=== PATIENT | male | born 1995 | race Two or more races ===

== ENCOUNTER 2023-09-14 01:01 | Inpatient (IN) | payer BC, OTHER ==
[2023-09-14] VITALS (14 sets, daily range): PULSE 115–132; RESP 14–59; O2SAT 93–100
[~2023-09-14] VITALS: Ht 177.8 cm; Wt 81.9 kg
[2023-09-14] MEDS ORDERED: MethylPREDNISolone SOD SUCC 125 MG/2 ML VIAL ONE (01:13)
[2023-09-14 01:30] LABS: HEMOGLOBIN 14.8 g/dL (13.5-17.5); MEAN CORPUSCULAR HGB CONC 32.5 G/dL (31.0-37.0)
[2023-09-14] MEDS ORDERED: EPINEPHrine 2 MG in DEXTROSE 5%-WATER 248 ML IV PRN (01:30)
[2023-09-14 01:38] LABS: ANION GAP 20 mmol/L (8-16); CALCIUM, TOTAL 9.9 mg/dL (8.8-10.5); CARBON DIOXIDE 19 mmol/L (22-29); CHLORIDE 101 mmol/L (98-107); GLOMERULAR FILTR. RATE CALC > 60 mL/min (>60); GLUCOSE,RANDOM 237 mg/dL (70-110); POTASSIUM 3.6 mmol/L (3.5-5.1); SODIUM SERUM 140 mmol/L (136-145); UREA NITROGEN, BLOOD 15 mg/dL (7-18)
[2023-09-14 01:42] LABS: BASOPHILS % (AUTO) 0.8 % (0.0-2.0); EOSINOPHILS % (AUTO) 5.1 % (1.0-6.0); HEMATOCRIT 45.6 % (41-53); LYMPHOCYTES # (AUTO) 8.5 K/uL (1.0-4.8); LYMPHOCYTES % (AUTO) 50.8 % (22.0-44.0); MEAN CORPUSCULAR HEMOGLOBIN 29.4 pg (26.0-34.0); MEAN CORPUSCULAR VOLUME 91 fL (80-100); MONOCYTES # (AUTO) 1.5 K/uL (0.1-1.0); MONOCYTES % (AUTO) 8.9 % (2.0-9.0); NEUTROPHILS # (AUTO) 5.8 K/uL (1.8-7.7); NEUTROPHILS % (AUTO) 34.4 % (40.0-70.0); PLATELET COUNT (AUTO) 431 K/uL (150-450); RED BLOOD CELL COUNT(AUTO) 5.03 MIL/uL (4.50-5.90); RED CELL DISTRIBUTION WIDTH 13.2 % (11.5-14.5); WHITE BLOOD COUNT (AUTO) 16.8 K/uL (4.5-11.0)
[2023-09-14] MEDS ORDERED: AMIODARONE HCL 360 MG in DEXTROSE 5%-WATER 242.8 ML IV ONE (01:45)
[2023-09-14] MEDS ORDERED: AMIODARONE HCL 50 MG/ML 3 ML VIAL IVP ONE (01:45)
[2023-09-14] MEDS ORDERED: ADENOSINE 3 MG/ML 2 ML VIAL IVP ONE ×2 (01:45)
[2023-09-14 01:46] LABS: PROTHROMBIN TIME 10.7 SEC (9.4-11.6); TROPONIN I-HIGH SENSITIVITY 5 ng/L (<76)
[2023-09-14 01:48] LABS: ALANINE AMINOTRANSFERASE 24 U/L (12-78); ALBUMIN 4.4 g/dL (3.4-5.0); ALKALINE PHOSPHATASE 123 U/L (46-116); ASPARTATE AMINOTRANSFERASE 19 U/L (15-37); BILIRUBIN,TOTAL 0.5 mg/dL (0.1-1.0); CREATINE KINASE, TOTAL ONLY 171 U/L (39-308); TOTAL PROTEIN, SERUM 8.3 g/dL (6.4-8.2)
[2023-09-14 01:50] LABS: APPEARANCE,URINE CLEAR (CLEAR); BILIRUBIN,URINE NEGATIVE (NEGATIVE); COLOR,URINE LIGHT YELLOW (YELLOW); GLUCOSE, URINE (UA) NEGATIVE (NEGATIVE); KETONES,URINE NEGATIVE (NEGATIVE); LEUKOCYTE ESTERASE ,URINE NEGATIVE (NEGATIVE); NITRATE,URINE NEGATIVE (NEGATIVE); OCCULT BLOOD,URINE TRACE (NEGATIVE); PH,URINE 6.5 (5.0-8.0); PROTEIN,URINE 30-70 mg/dL (NEGATIVE); SPECIFIC GRAVITIY, URINE 1.018 (1.003-1.030); UROBILINOGEN,URINE <=1.0 mg/dL (<=1.0)
[2023-09-14 01:53] LABS: B-TYPE NATRIURETIC PEPTIDE 9 pg/mL (0-100)
[2023-09-14] MEDS: PROPOFOL 1000 MG/ISO-OSM 100 ML IV PRN (01:57)
[2023-09-14 01:59] LABS: WBC,URINE 0-2 /HPF (0-5)
[2023-09-14 02:00] LABS: BACTERIA,URINE None Seen /HPF (None Seen); RBC,URINE 0-2 /HPF (0-2); SQUAMOUS EPITHELIAL CELL,UR None Seen /LPF (None Seen)
[2023-09-14] MEDS ORDERED: MAGNESIUM SULFATE 4 GM/WATER 100 ML IV ONE (02:00)
[2023-09-14 02:21] LABS: GLUCOMETER DEV NAME(LOC) ER.6; GLUCOSE,POINT OF CARE 256 MG/DL (70-110)
[2023-09-14 02:21] LABS: GLUCOMETER DEV NAME(LOC) ER.6; GLUCOSE,POINT OF CARE 271 MG/DL (70-110)
[2023-09-14] MEDS ORDERED: DEXAMETHASONE SOD PHOS 4 MG/ML 5 ML VIAL IVP ONE (02:45)
[2023-09-14] MEDS ORDERED: AMPICILLIN SODIUM/SULBACTAM NA 3 GM in SODIUM CHLORIDE 0.9% 100 ML IV ONE ×3 (03:00→09:30)
[2023-09-14] MEDS ORDERED: ROCURONIUM BROMIDE 10 MG/ML 5 ML VIAL IVP ONE ×2 (03:00→07:00)
[2023-09-14 03:24] LABS: ABG CARBOXYHEMOGLOBIN 0.3 % (0.0-3.0); SOURCE, BLOOD GAS ARTERIAL; TEMPERATURE, FAHRENHEIT, BG 96.6 FAHREN (96.0-98.6)
[2023-09-14 03:28] LABS: ABG METHEMOGLOBIN 0.5 % (0.0-1.5); ABG OXYGEN CONTENT 20.3 mL/dL (15.0-23.0); ABG OXYGEN SATURATION 96.7 % (95.0-98.0); ABG OXYHEMOGLOBIN 95.9 % (94.0-100.0); ABG TOTAL HEMOGLOBIN 14.9 G/dL (12.0-18.0); PO2, ARTERIAL BG 134.2 mmHg (80.0-100.0)
[2023-09-14 03:30] LABS: ALLEN TEST, BLOOD GAS Positive; O2 DEVICE,BLOOD GAS VENTILATOR (ROOM AIR); SITE, BLOOD GAS RT RADIAL; VENT MODE, BG Press. Control Vent (ROOM AIR); VT, ABG 76 ml
[2023-09-14 03:31] LABS: PH,URINE DRUG SCREEN 6.5 (5.0-8.0)
[2023-09-14 03:31] LABS: INSIPIRATORY PRESSURE, BG 28 cm H2O; PEEP,BG 10 cm H2O; SPONTANEOUS VT, BG 76 ml
[2023-09-14 03:33] LABS: ALCOHOL, URINE DRUG SCREEN NEGATIVE (NEGATIVE); AMPHET/METH SCREEN,URINE NEGATIVE (NEGATIVE); BARBITURATE SCREEN, URINE NEGATIVE (NEGATIVE); BENZODIAZEPINES SCREEN,URINE NEGATIVE (NEGATIVE); CANNABINOID SCREEN,URINE POSITIVE (NEGATIVE); COCAINE SCREEN,URINE NEGATIVE (NEGATIVE); METHADONE SCREEN, URINE NEGATIVE (NEGATIVE); OPIATE SCREEN,URINE NEGATIVE (NEGATIVE); PHENCYCLIDINE SCREEN,URINE NEGATIVE (NEGATIVE)
[2023-09-14] MEDS ORDERED: SODIUM BICARBONATE [ADULT] 8.4% 50 MEQ/50 ML SYRINGE IVP ONE ×2 (03:37→03:45)
[2023-09-14] MEDS ORDERED: ACETAMINOPHEN 325 MG TABLET PO PRN ×2 (03:45→09:15)
[2023-09-14] MEDS ORDERED: 0.9% SODIUM CHLORIDE 10 ML SYRINGE IVP PRN (03:45)
[2023-09-14] MEDS ORDERED: FentaNYL CIT 1000MCG/0.9% NACL 100 ML IV PRN (04:45)
[2023-09-14] MEDS ORDERED: RINGERS SOLUTION,LACTATED 1,000 ML IV ONE (06:30)
[2023-09-14 07:12] LABS: ABG BASE EXCESS 1.5 mmol/L (-2.0-3.0); ABG CARBOXYHEMOGLOBIN 0.1 % (0.0-3.0); ABG HCO3 23.2 mmol/L (22.0-26.0); ABG OXYGEN CONTENT 21.1 mL/dL (15.0-23.0); ABG OXYGEN SATURATION 99.7 % (95.0-98.0); ABG OXYHEMOGLOBIN 98.6 % (94.0-100.0); ABG TOTAL HEMOGLOBIN 14.8 G/dL (12.0-18.0); PO2, ARTERIAL BG 243.8 mmHg (80.0-100.0); SOURCE, BLOOD GAS ARTERIAL; TEMPERATURE, FAHRENHEIT, BG 95.6 FAHREN (96.0-98.6)
[2023-09-14 07:14] LABS: COVID AG,FIA SOURCE NASAL SWAB
[2023-09-14 07:15] LABS: ABG PCO2 89 mmHg (35-45); ABG PH 7.145 (7.350-7.450); ALLEN TEST, BLOOD GAS POS; O2 DEVICE,BLOOD GAS VENTILATOR (ROOM AIR); SITE, BLOOD GAS LFT BRACHIAL; VENT MODE, BG Press. Control Vent (ROOM AIR)
[2023-09-14 07:16] LABS: INSIPIRATORY PRESSURE, BG 32 cm H2O; PEEP,BG 10 cm H2O; SPONTANEOUS VT, BG 253 ml
[2023-09-14 07:38] LABS: INFLUENZA TYPE A NEGATIVE FOR TYPE A (NEGATIVE); INFLUENZA TYPE B NEGATIVE FOR TYPE B (NEGATIVE); SARS-COV2 (COVID) ANTIGEN,FIA Negative (Negative)
[2023-09-14] MEDS ORDERED: AMIODARONE HCL 540 MG in DEXTROSE 5%-WATER 239.2 ML IV ONE (07:45)
[2023-09-14] MEDS ORDERED: INSULIN LISPRO 100 UNITS/ML SQ PRN (09:15)
[2023-09-14] MEDS ORDERED: ONDANSETRON HCL 4 MG/2 ML VIAL IVP PRN (09:15)
[2023-09-14] MEDS ORDERED: DEXTROSE 50%-WATER 25 GM/50 ML SYRINGE IVP PRN (09:15)
[2023-09-14] MEDS ORDERED: BISACODYL 10 MG RECTAL RECTAL SUPPOSITORY PR PRN (09:15)
[2023-09-14 09:51] LABS: THYROID STIMULATING HORMONE 4.82 uIU/mL (0.36-3.74)
[2023-09-14 11:18] LABS: ABG BASE EXCESS -3.3 mmol/L (-2.0-3.0); ABG CARBOXYHEMOGLOBIN 0.1 % (0.0-3.0); ABG HCO3 21.6 mmol/L (22.0-26.0); ABG OXYGEN CONTENT 21.6 mL/dL (15.0-23.0); ABG OXYGEN SATURATION 99.9 % (95.0-98.0); ABG OXYHEMOGLOBIN 98.8 % (94.0-100.0); ABG PCO2 46 mmHg (35-45); ABG PH 7.315 (7.350-7.450); PO2, ARTERIAL BG 323.3 mmHg (80.0-100.0); SOURCE, BLOOD GAS ARTERIAL; TEMPERATURE, FAHRENHEIT, BG 97.7 FAHREN (96.0-98.6)
[2023-09-14 11:19] LABS: ALLEN TEST, BLOOD GAS POS; SITE, BLOOD GAS RT BRACHIAL
[2023-09-14 11:20] LABS: O2 DEVICE,BLOOD GAS VENTILATOR (ROOM AIR); PEEP,BG 5 cm H2O; SPONTANEOUS VT, BG 403 ml; VT, ABG 450 ml
[2023-09-14] MEDS: MethylPREDNISolone SOD SUCC 125 MG/2 ML VIAL IVP SCH ×3 (11:23→23:38)
[2023-09-14] MEDS: MIDAZOLAM HCL 100 MG in SODIUM CHLORIDE 0.9% 180 ML IV PRN (11:36)
[2023-09-14] MEDS ORDERED: LIDOCAINE 1% 10 ML VIAL ONE (12:07)
[2023-09-14] MEDS: PIPERACILLIN/TAZO 3.375 GM/D5W 50 ML IV SCH ×2 (14:35→20:47)
[2023-09-14] MEDS: HEPARIN SODIUM,PORCINE 5,000 UNITS/ML VIAL SQ SCH (15:13)
[2023-09-14] MEDS ORDERED: KETAMINE HCL 500 MG in DEXTROSE 5%-WATER 490 ML IV PRN (16:45)
[2023-09-14] MEDS ORDERED: LEVALBUTEROL 1.25 MG/0.5 ML NEB SOLUTION NEB ONE (16:51)
[2023-09-14] MEDS ORDERED: IPRATROPIUM BROMIDE 0.5 MG/2.5 ML NEB SOLUTION NEB ONE (16:51)
[2023-09-14] MEDS: IPRATROPIUM BROMIDE 0.5 MG/2.5 ML NEB SOLUTION NEB SCH ×4 (16:57→23:36)
[2023-09-14] MEDS ORDERED: LEVALBUTEROL 0.63 MG/3 ML NEB SOLUTION NEB SCH (17:00)
[2023-09-14] MEDS: LEVALBUTEROL 1.25 MG/0.5 ML NEB SOLUTION NEB SCH ×4 (17:13→23:36)
[2023-09-14] MEDS: DOCUSATE SODIUM 100 MG CAPSULE PO SCH (20:56)
[2023-09-14] MEDS: CHLORHEXIDINE GLUCONATE 2% TOWELETTE [2'S/6'S] TP SCH (20:57)
[2023-09-14] MEDS: FentaNYL CIT 1000MCG/0.9% NACL 100 ML IV PRN (22:56)
[2023-09-15] VITALS (21 sets, daily range): BP systolic 122; BP diastolic 64; PULSE 119–136; RESP 13–21; TEMP 100.4; O2SAT 91–100
[2023-09-15] MEDS: HEPARIN SODIUM,PORCINE 5,000 UNITS/ML VIAL SQ SCH ×3 (00:13→16:00)
[2023-09-15] MEDS: IPRATROPIUM BROMIDE 0.5 MG/2.5 ML NEB SOLUTION NEB SCH ×8 (01:26→22:51)
[2023-09-15] MEDS: LEVALBUTEROL 1.25 MG/0.5 ML NEB SOLUTION NEB SCH ×8 (01:26→22:51)
[2023-09-15] MEDS ORDERED: AMIODARONE HCL 750 MG in DEXTROSE 5%-WATER 485 ML IV SCH (01:45)
[2023-09-15 02:31] LABS: ABG BASE EXCESS -0.5 mmol/L (-2.0-3.0); ABG HCO3 23.6 mmol/L (22.0-26.0); ABG METHEMOGLOBIN 1.2 % (0.0-1.5); ABG OXYGEN CONTENT 19.8 mL/dL (15.0-23.0); ABG OXYGEN SATURATION 99.9 % (95.0-98.0); ABG OXYHEMOGLOBIN 98.7 % (94.0-100.0); ABG PCO2 52 mmHg (35-45); ABG PH 7.311 (7.350-7.450); ABG TOTAL HEMOGLOBIN 13.6 G/dL (12.0-18.0); PO2, ARTERIAL BG 363.9 mmHg (80.0-100.0); SOURCE, BLOOD GAS ARTERIAL; TEMPERATURE, FAHRENHEIT, BG 98.7 FAHREN (96.0-98.6)
[2023-09-15 02:32] LABS: INSIPIRATORY PRESSURE, BG 32 cm H2O; O2 DEVICE,BLOOD GAS VENTILATOR (ROOM AIR); PEEP,BG 0 cm H2O; SITE, BLOOD GAS ARTERIAL LINE; VENT MODE, BG Press. Control Vent (ROOM AIR); VT, ABG 534 ml
[2023-09-15 02:40] LABS: HEMATOCRIT 36.8 % (41-53); HEMOGLOBIN 12.4 g/dL (13.5-17.5); MEAN CORPUSCULAR HEMOGLOBIN 29.4 pg (26.0-34.0); MEAN CORPUSCULAR HGB CONC 33.6 G/dL (31.0-37.0); MEAN CORPUSCULAR VOLUME 87 fL (80-100); PLATELET COUNT (AUTO) 251 K/uL (150-450); RED BLOOD CELL COUNT(AUTO) 4.22 MIL/uL (4.50-5.90); RED CELL DISTRIBUTION WIDTH 13.1 % (11.5-14.5); WHITE BLOOD COUNT (AUTO) 18.9 K/uL (4.5-11.0)
[2023-09-15 02:51] LABS: ALBUMIN 3.5 g/dL (3.4-5.0); BILIRUBIN,TOTAL 0.5 mg/dL (0.1-1.0); CREATININE 1.63 mg/dL (0.60-1.30); POTASSIUM 3.5 mmol/L (3.5-5.1); TOTAL PROTEIN, SERUM 6.8 g/dL (6.4-8.2)
[2023-09-15 03:01] LABS: LACTIC ACID 3.8 mmol/L (0.4-2.0)
[2023-09-15 03:08] LABS: TROPONIN I-HIGH SENSITIVITY 45 ng/L (<76)
[2023-09-15 03:12] LABS: BAND NEUTROPHILS % (MANUAL) 7 % (0-5); LYMPHOCYTES % (MANUAL) 4 % (22-44); MONOCYTES % (MANUAL) 3 % (2-9); RBC MORPHOLOGY COMMENT NORMAL RBC MORPH; SEGMENTED NEUTROPHILS % 86 % (40-70); TOTAL CELLS COUNTED 100
[2023-09-15] MEDS: PIPERACILLIN/TAZO 3.375 GM/D5W 50 ML IV SCH ×4 (03:24→21:22)
[2023-09-15] MEDS: FentaNYL CIT 1000MCG/0.9% NACL 100 ML IV PRN ×3 (03:43→21:25)
[2023-09-15] MEDS: MethylPREDNISolone SOD SUCC 125 MG/2 ML VIAL IVP SCH ×3 (05:39→18:32)
[2023-09-15] MEDS ORDERED: LEVALBUTEROL 0.63 MG/3 ML NEB SOLUTION NEB SCH (07:00)
[2023-09-15] MEDS: DOCUSATE SODIUM 100 MG CAPSULE PO SCH ×2 (08:18→21:25)
[2023-09-15] MEDS: PANTOPRAZOLE SODIUM 40 MG/VIAL IVP SCH (08:20)
[2023-09-15] MEDS: SODIUM CHLORIDE 0.9% 1,000 ML IV SCH ×2 (08:30→21:26)
[2023-09-15 10:31] LABS: GLUCOMETER DEV NAME(LOC) ER.6; GLUCOSE,POINT OF CARE 140 MG/DL (70-110)
[2023-09-15] MEDS ORDERED: BUDESONIDE 0.5 MG/2 ML NEB SOLUTION NEB ONE (12:40)
[2023-09-15] MEDS: BUDESONIDE 0.5 MG/2 ML NEB SOLUTION NEB SCH ×3 (13:59→20:00)
[2023-09-15] MEDS ORDERED: CloNIDine HCL 0.1 MG TABLET PO PRN (14:00)
[2023-09-15] MEDS: PROPOFOL 1000 MG/ISO-OSM 100 ML IV PRN ×2 (15:37→22:13)
[2023-09-15] MEDS: MIDAZOLAM HCL 100 MG in SODIUM CHLORIDE 0.9% 180 ML IV PRN (18:38)
[2023-09-15] MEDS: CHLORHEXIDINE GLUCONATE 2% TOWELETTE [2'S/6'S] TP SCH (21:26)
[2023-09-16] VITALS (20 sets, daily range): BP systolic 115–161; BP diastolic 61–89; PULSE 101–122; RESP 14–17; TEMP 97.8–99.7; O2SAT 99–100
[2023-09-16] MEDS: HEPARIN SODIUM,PORCINE 5,000 UNITS/ML VIAL SQ SCH ×3 (00:32→16:15)
[2023-09-16] MEDS: MethylPREDNISolone SOD SUCC 125 MG/2 ML VIAL IVP SCH ×4 (00:32→18:28)
[2023-09-16 01:21] LABS: GLUCOMETER DEV NAME(LOC) ICUN.5; GLUCOSE,POINT OF CARE 135 MG/DL (70-110)
[2023-09-16] MEDS: PROPOFOL 1000 MG/ISO-OSM 100 ML IV PRN ×4 (02:12→19:21)
[2023-09-16] MEDS: FentaNYL CIT 1000MCG/0.9% NACL 100 ML IV PRN ×3 (02:13→18:28)
[2023-09-16] MEDS: PIPERACILLIN/TAZO 3.375 GM/D5W 50 ML IV SCH ×3 (02:13→14:57)
[2023-09-16] MEDS: IPRATROPIUM BROMIDE 0.5 MG/2.5 ML NEB SOLUTION NEB SCH ×4 (03:53→15:18)
[2023-09-16] MEDS: LEVALBUTEROL 1.25 MG/0.5 ML NEB SOLUTION NEB SCH ×4 (03:53→15:19)
[2023-09-16 05:51] LABS: EOSINOPHILS % (AUTO) 0 % (1.0-6.0); HEMATOCRIT 33.4 % (41-53); HEMOGLOBIN 11.1 g/dL (13.5-17.5); LYMPHOCYTES # (AUTO) 0.3 K/uL (1.0-4.8); LYMPHOCYTES % (AUTO) 2.6 % (22.0-44.0); MEAN CORPUSCULAR HEMOGLOBIN 29.6 pg (26.0-34.0); MEAN CORPUSCULAR HGB CONC 33.2 G/dL (31.0-37.0); MEAN CORPUSCULAR VOLUME 89 fL (80-100); MONOCYTES # (AUTO) 0.4 K/uL (0.1-1.0); MONOCYTES % (AUTO) 3.6 % (2.0-9.0); NEUTROPHILS # (AUTO) 11.7 K/uL (1.8-7.7); PLATELET COUNT (AUTO) 187 K/uL (150-450); RED BLOOD CELL COUNT(AUTO) 3.75 MIL/uL (4.50-5.90); RED CELL DISTRIBUTION WIDTH 13.4 % (11.5-14.5); WHITE BLOOD COUNT (AUTO) 12.5 K/uL (4.5-11.0)
[2023-09-16 05:53] LABS: NEUTROPHILS % (AUTO) 93.8 % (40.0-70.0)
[2023-09-16 06:08] LABS: ALANINE AMINOTRANSFERASE 40 U/L (12-78); ALBUMIN 3.2 g/dL (3.4-5.0); ALKALINE PHOSPHATASE 73 U/L (46-116); ANION GAP 2 mmol/L (8-16); ASPARTATE AMINOTRANSFERASE 27 U/L (15-37); BILIRUBIN,TOTAL 0.3 mg/dL (0.1-1.0); CALCIUM, TOTAL 8.3 mg/dL (8.8-10.5); CARBON DIOXIDE 35 mmol/L (22-29); CHLORIDE 108 mmol/L (98-107); CREATININE 0.72 mg/dL (0.60-1.30); GLOMERULAR FILTR. RATE CALC > 60 mL/min (>60); GLUCOSE,RANDOM 149 mg/dL (70-110); POTASSIUM 4.9 mmol/L (3.5-5.1); SODIUM SERUM 145 mmol/L (136-145); TOTAL PROTEIN, SERUM 6.3 g/dL (6.4-8.2); UREA NITROGEN, BLOOD 18 mg/dL (7-18)
[2023-09-16 07:21] LABS: GLUCOSE,POINT OF CARE 123 MG/DL (70-110)
[2023-09-16] MEDS: PANTOPRAZOLE SODIUM 40 MG/VIAL IVP SCH (08:54)
[2023-09-16] MEDS: DOCUSATE SODIUM 100 MG CAPSULE PO SCH (08:55)
[2023-09-16] MEDS: BUDESONIDE 0.5 MG/2 ML NEB SOLUTION NEB SCH ×2 (08:57→15:41)
[2023-09-16] MEDS: SODIUM CHLORIDE 0.9% 1,000 ML IV SCH (08:57)
[2023-09-16] MEDS ORDERED: SODIUM CHLORIDE 0.9% 250 ML IV ONE (09:00)
[2023-09-16 17:26] LABS: GLUCOSE,POINT OF CARE 151 MG/DL (70-110)
[2023-09-16 21:26] LABS: GLUCOSE,POINT OF CARE 118 MG/DL (70-110)
== END 2023-09-16 20:35 | disposition short-term general hospital (02) | DRG 208 ==
LOC: EMS 01:02 → ICUN 18:44 → ICU 09-15 14:49
PROVIDERS: ADMIT Hospitalist; ATTEND Hospitalist
PROC: 5A1945Z Respiratory Ventilation, 24-96 Consecutive Hours (ICD-10-PCS; principal; 2023-09-14)
PROC: 0BH17EZ Insertion of Endotracheal Airway into Trachea, Via Natural or Artificial Opening (ICD-10-PCS; 2023-09-14)
PROC: 5A12012 Performance of Cardiac Output, Single, Manual (ICD-10-PCS; 2023-09-14)
PROC: 5A2204Z Restoration of Cardiac Rhythm, Single (ICD-10-PCS; 2023-09-14)
PROC: 04HY32Z Insertion of Monitoring Device into Lower Artery, Percutaneous Approach (ICD-10-PCS; 2023-09-14)
PROC: 06HY33Z Insertion of Infusion Device into Lower Vein, Percutaneous Approach (ICD-10-PCS; 2023-09-14)
PROC: B54BZZA Ultrasonography of Right Lower Extremity Veins, Guidance (ICD-10-PCS; 2023-09-14)
PROC: 0W9B30Z Drainage of Left Pleural Cavity with Drainage Device, Percutaneous Approach (ICD-10-PCS; 2023-09-15)
DX: J96.02 Acute respiratory failure with hypercapnia (principal); I46.9 Cardiac arrest, cause unspecified; J69.0 Pneumonitis due to inhalation of food and vomit; Z99.11 Dependence on respirator [ventilator] status; R65.10 Systemic inflammatory response syndrome (SIRS) of non-infectious origin without acute organ dysfunction; N17.9 Acute kidney failure, unspecified; J93.9 Pneumothorax, unspecified; J98.11 Atelectasis; I31.9 Disease of pericardium, unspecified; I47.10 Supraventricular tachycardia, unspecified; E87.29 Other acidosis; J45.902 Unspecified asthma with status asthmaticus; J98.2 Interstitial emphysema; F17.210 Nicotine dependence, cigarettes, uncomplicated; Z20.822 Contact with and (suspected) exposure to COVID-19
CPT/HCPCS: 36600; 70450; 71045; 71250; 80053; 80307; 81001; 82550; 82805; 82962; 83605; 83880; 84443; 84484; 85025; 85610; 85730; 87081; 87804; 92950; 93005; 93306; 94002; 94003; 94640; 99291; C9113; J0171; J0282; J0295; J1100; J1644; J2250; J2543; J2704; J2930; J3475; J3490; J7030; J7050; J7060; J7120; Q9967; 36415-L1; 36415-TC; Z7610